=== PATIENT | male | born 1940 | race Caucasian/White ===

== ENCOUNTER → 2018-11-01 09:22 | Outpatient (CLI) | payer MEDICARE, OTHER ==
[~2018-11-01 09:22] MED LIST: BAYER CHEWABLE81 MG PO; COZAAR100 MG PO; EVOXAC30 MG PO; FOLIC ACID1 MG PO; GLUCOPHAGE500 MG PO; HCTZ25 MG PO; HEMOCYTE PLUS C1 CAP PO; METHOTREXATE2.5 MG PO; MOBIC7.5 MG PO; MULTI-DAY VITAM1 TAB PO; NEURONTIN600 MG PO; NORVASC5 MG PO; OMEPRAZOLE DR PO; PERCOCET 5-3251 TAB PO; PRAVASTATIN SOD10 MG PO; SALINE NASAL SP45 ML NS
--- NOTE | 2018-11-05 08:49 | EC ---
PATIENT:DOUGLAS SCHAEFER DATE OF SERVICE: 11/01/18 SEX: M MEDICAL RECORD: [id number] DATE OF : 36 LOCATION:[facility] AGE OF PATIENT: 78 ADMISSION DATE: 11/01/18 REFERRING PHYSICIAN: INTERPRETING PHYSICIAN: LUCIA SETHI MD ECHOCARDIOGRAM REPORT ECHO CHARGES 4 ECHO COMPLETE Date: 11/01/18 CLINICAL DIAGNOSIS: H/O CAD/CABG/HTN ECHOCARDIOGRAPHIC MEASUREMENTS (adult normal given) AC root (d.<3.7cm) 3.4 cm LV Septum d (<1.2 cm> 0.8 cm Valve Excursion 1.9 cm LV Septum (systole) 1.2 cm Left Atria (s.<4.0cm> 3.9 cm LVPW d(<1.2cm) 1.0 cm RV (d.<2.3cm) 2.4 cm LVPW (sytole) 1.7 cm LV diastole(<5.6CM) 5.4 cm MV E-F(>70mm/sec) cm LV systole 3.7 cm LVOT Diameter 1.8 cm MV exc.(>10mm) cm Est.ejection fraction (50-75%) % DOPPLER: LVIT cm/sec A 93.0 cm/sec E 120 cm/sec LA cm/sec RVSP 37.2 mmHg LVOT 89.0 cm/sec AOP1/2T m/s Asc. 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 Avalos TAPE# PACS Pericardial Effusion N DATE OF SERVICE: Adequate 2-D, color-flow and spectral Doppler, and M-mode. No LVH. LV internal dimensions are normal. Wall motion is normal. EF is greater than or equal to 55%. Aortic valve is tricuspid. No evidence of stenosis by Doppler interrogation. Left atrium normal at 3.9 cm. Mitral valve shows no prolapse. Trace MR. Right-sided chamber is grossly normal. Trace TR. TRANSINT:[id number] Voice Confirmation ID: [id number] DOCUMENT ID: [id number] ECHOCARDIOGRAM REPORT [id number] DOUGLAS SCHAEFER,LUCIA Cali MD at 0849 CC: [id number] DICTATION DATE: 11/04/18 1443 RN STAFF: 11/04/18 1559 [facility] CLI 11/01/18 [place] [id number] [place] [id number]
== END | disposition home or self-care (01) ==
LOC: D.HCCARDIO 09:22
DX: I25.10 Atherosclerotic heart disease of native coronary artery without angina pectoris (principal)

== ENCOUNTER → 2019-11-26 08:12 | Outpatient (CLI) | payer MEDICARE, OTHER ==
[2016-06-15 13:42] VITALS: BMI 22.8
--- NOTE | 2019-11-27 10:33 | EC ---
PATIENT:DOUGLAS SCHAEFER DATE OF SERVICE: 11/26/19 SEX: M MEDICAL RECORD: [id number] DATE OF : 36 [facility] AGE OF PATIENT: 79 ADMISSION DATE: 11/26/19 REFERRING PHYSICIAN: INTERPRETING PHYSICIAN: LUCIA SETHI MD ECHOCARDIOGRAM REPORT ECHO CHARGES 4 ECHO COMPLETE Date: 11/26/19 CLINICAL DIAGNOSIS: HTN/MITRAL AND TRICUSPID REGURG ECHOCARDIOGRAPHIC MEASUREMENTS (adult normal given) AC root (d.<3.7cm) 3.2 cm LV Septum d (<1.2 cm> 1.2 cm Valve Excursion 1.6 cm LV Septum (systole) 1.5 cm Left Atria (s.<4.0cm> 3.8 cm LVPW d(<1.2cm) 1.3 cm RV (d.<2.3cm) 3.9 cm LVPW (sytole) 1.7 cm LV diastole(<5.6CM) 4.6 cm MV E-F(>70mm/sec) cm LV systole 2.7 cm LVOT Diameter 1.6 cm MV exc.(>10mm) 1.2 cm Est.ejection fraction (50-75%) % DOPPLER: LVIT cm/sec A 96.0 cm/sec E 30.0 cm/sec LA cm/sec RVSP 32 mmHg LVOT 78 cm/sec AOP1/2T m/s Asc. Ao 99 cm/sec RVOT 84 cm/sec RA cm/sec PA 105 cm/sec AV Gradient Peak 3.91 mmHg AV Mean 1.96 mmHg AV Area 2.0 cm MV Gradient Peak 5.50 mmHg MV Mean 2.16 mmHg MV Area cm COMMENTS: Truck Driver Rubbish Collector: 2 PADMA KIDD Power Supply Engineer: 3 Dr. Avalos TAPE# PACS Pericardial Effusion N DATE OF SERVICE: Adequate 2D, color flow imaging, spectral Doppler, and M-Mode. Borderline LVH. LV internal dimension is normal. Wall motion is normal. EF is greater than or equal to 55%. Aortic valve is tricuspid. No evidence of stenosis by Doppler interrogation. Left atrium normal at 3.8 cm. Mitral valve shows no prolapse. Trace MR. Right-sided chambers are grossly normal. Trace TR. ECHOCARDIOGRAM REPORT [id number] DOUGLAS SCHAEFER TRANSINT:[id number] Voice Confirmation ID: [id number] DOCUMENT ID: [id number] LUCIA SETHI MD at 1033 CC: [id number] DICTATION DATE: 11/27/19826 AIRPORT PLANNER: 11/27/19 1013 [facility] CLI 11/26/19 [place] [id number] [place] [id number]
== END | disposition home or self-care (01) ==
LOC: D.HCCECHO 08:12
PROVIDERS: ATTEND Internal Medicine Interventional Cardiology
DX: I10 Essential (primary) hypertension (principal)

== ENCOUNTER → 2020-12-01 08:57 | Outpatient (CLI) | payer MEDICARE, OTHER ==
[2016-06-15 13:42] VITALS: BMI 22.8
--- NOTE | 2020-12-02 08:19 | EC ---
PATIENT:DOUGLAS SCHAEFER DATE OF SERVICE: 12/01/20 SEX: M MEDICAL RECORD: [id number] DATE OF : 36 LOCATION:[facility] AGE OF PATIENT: 80 ADMISSION DATE: 12/01/20 REFERRING PHYSICIAN: INTERPRETING PHYSICIAN: LUCIA SETHI MD ECHOCARDIOGRAM REPORT ECHO CHARGES 4 ECHO COMPLETE Date: 12/01/20 CLINICAL DIAGNOSIS: CAD/ASSESS EF/ MITRAL/TRICUSPID REGURG AND AORTIC SCLEROSIS ECHOCARDIOGRAPHIC MEASUREMENTS (adult normal given) AC root (d.<3.7cm) 2.6 cm LV Septum d (<1.2 cm> 1.0 cm Valve Excursion 0.9 cm LV Septum (systole) 1.2 cm Left Atria (s.<4.0cm> 3.7 cm LVPW d(<1.2cm) 1.2 cm RV (d.<2.3cm) 3.5 cm LVPW (sytole) 1.4 cm LV diastole(<5.6CM) 5.5 cm MV E-F(>70mm/sec) cm LV systole 3.9 cm LVOT Diameter 1.7 cm MV exc.(>10mm) 0.9 cm Est.ejection fraction (50-75%) % DOPPLER: LVIT cm/sec A 37.0 cm/sec E 113.0 cm/sec LA cm/sec RVSP 30 mmHg LVOT 88 cm/sec AOP1/2T m/s Asc. Ao 116 cm/sec RVOT 73 cm/sec RA cm/sec PA 105 cm/sec AV Gradient Peak 5.39 mmHg AV Mean 3.07 mmHg AV Area 1.8 cm MV Gradient Peak 7.04 mmHg MV Mean 2.23 mmHg MV Area cm COMMENTS: Bartacker: 2 PADMA KIDD Coordinator Of Placement: 3 Dr. Avalos TAPE# PACS Pericardial Effusion N DATE OF SERVICE: Adequate 2D, color-flow imaging, spectral Doppler, and M-Mode. FINDINGS: No LVH. LV internal dimensions are normal. Wall motion is normal. EF is greater than or equal to 55%. Aortic valve is sclerotic. No evidence of stenosis by Doppler interrogation. Left atrium is normal 3.7 cm. Mitral valve shows no prolapse. Moderate MR. Right side is grossly normal. Mild TR. TRANSINT:[id number] Voice Confirmation ID: [id number] DOCUMENT ID: [id number] ECHOCARDIOGRAM REPORT [id number] DOUGLAS SCHAEFER,LUCIA Cali MD at 0819 CC: [id number] DICTATION DATE: 12/01/201624 SALES ASSISTANT ENTERTAINMENT AND MEDIA: 12/01/20 2339 [facility] CLI 12/01/20 [place] [id number] [place] [id number]
== END | disposition home or self-care (01) ==
LOC: D.HCCECHO 08:57
PROVIDERS: ATTEND Internal Medicine Interventional Cardiology
DX: I25.10 Atherosclerotic heart disease of native coronary artery without angina pectoris (principal)